=== PATIENT | female | born 1995 | race Caucasian/White ===

== ENCOUNTER → 2024-06-26 13:03 | Outpatient (CLI) | payer OTHER, SELFPAY ==
[2024-06-26 20:09] LABS: Add Manual Diff / Slide Review NO; Basophils Absolute Auto 100 /uL (0-100); Basophils Percent Auto 0.5 % (0-2); Eosinophils Absolute Auto 300 /uL (0-450); Eosinophils Percent Auto 3.1 % (2-4); Hematocrit 36.6 % (36-46); Hemoglobin 12.7 g/dL (12.0-16.0); Lymphocytes Absolute Auto 2000 /uL (1100-4500); Lymphocytes Percent Auto 18.3 % (25-40); Mean Corpuscular HGB Conc 34.7 % (30-36); Mean Corpuscular Hemoglobin 30.7 PG (26-34); Mean Corpuscular Volume 88.5 fL (80-100); Monocytes Absolute Auto 400 /uL (0-900); Monocytes Percent Auto 3.9 % (3-14); Neutrophils Absolute Auto 8300 /uL (1500-7000); Neutrophils Percent Auto 74.2 % (50-75); Platelet Count 240 X10^3/uL (150-400); Red Blood Cell Count 4.13 X10^6/uL (4.0-5.2); Red Cell Distribution Width 13.3 % (11.6-14.8); White Blood Cell Count 11.1 X10^3/uL (4.5-11.0)
[2024-06-26 23:34] LABS: Hepatitis B Surface Antigen NEGATIVE s/c (NEGATIVE); Rubella Antibody IgG 74.7 IU/mL (>15)
[2024-06-26 23:50] LABS: HIV 1 & 2 Ab/Ag 4th Gen Combo NEGATIVE (NEGATIVE); Hep C Virus Ab w/Reflex Quant NEGATIVE s/c (NEGATIVE)
[2024-06-28 08:09] LABS: Varicella IgG Antibody Reactive (Non Reactive)
[2024-07-02 08:08] LABS: RPR Screen Non Reactive (Non Reactive)
== END ==
PROVIDERS: PCP Family Medicine; Visit Provider Student in an Organized Health Care Education/Training Program
DX: Z34.00 Encounter for supervision of normal first pregnancy, unspecified trimester (principal)
CPT/HCPCS: 80055; 86787; 86803; 86850; 86900; 86901; 87389

== ENCOUNTER → 2024-07-09 10:07 | Outpatient (CLI) | payer OTHER, SELFPAY ==
[2024-07-09 15:13] LABS: Influenza A - CEPHEID Flu A NEGATIVE (NEGATIVE); Influenza B - CEPHEID Flu B NEGATIVE (NEGATIVE); Respiratory Syncytial Virus Negative (Negative)
[2024-07-09 15:18] LABS: COVID-19 CEPHEID 4-PLEX PCR Negative (Negative)
== END ==
PROVIDERS: PCP Family Medicine; Visit Provider Physician Assistant Medical
DX: Z34.90 Encounter for supervision of normal pregnancy, unspecified, unspecified trimester (principal); J06.9 Acute upper respiratory infection, unspecified
CPT/HCPCS: 0241U

== ENCOUNTER → 2024-07-22 14:35 | Outpatient (CLI) | payer OTHER, SELFPAY ==
--- NOTE | 2024-07-22 14:40 | DI.US.S_ITS ---
PROCEDURE: US OB >= 14 WEEKS FETUS INDICATIONS: 20 week anatomy scan OUTSIDE/PRIOR DATING DATA: Last menstrual period (LMP): 03/07/2024. LMP-based estimated date of delivery (SHANNAN): 12/12/2024. First dating scan (date and location): 05/16/2024. Estimated date of delivery (SHANNAN) from first dating scan: 12/06/2024. The calculations are made using the working SHANNAN of 12/12/2024. TECHNIQUE: Real-time scanning was performed of the fetus, with image documentation and biometric measurements. Endovaginal scanning: No COMPARISON: None. FINDINGS: General: A single living intrauterine gestation is present. Presentation: Breech. Placenta: Placental position is posterior , without previa. Amniotic fluid index: 12.1 cm, normal range is 5-24 cm. Single deepest vertical pocket is 4.0 cm. heart rate: 143 beats per minute. Maternal cervical canal: 4.1 cm long. Normal lower limit is 2.5 cm. biometrics: Biparietal diameter: 4.8 cm, 20 week 4 day Head circumference: 17.8 cm, 20 week 2 day Abdominal circumference: 15.2 cm, 20 week 3 day Femur length: 3.1 cm, 19 week 4 day Clinically estimated gestational age: 19 week 4 day Composite gestational age from present scan: 20 week 2 day Estimated weight and percentile: 331 g, 75 percentile Anatomic survey: Neuro: Ventricles are non-dilated at less than 10 mm. Cisterna magna is normal at 3-11 mm. Cerebellum is normal in size and morphology. Nuchal skin fold: Normal at less than 6 mm between 14-21 weeks gestational age. Face: Nose and lips, facial profile are normal. Spine: No evidence for spina bifida. Heart: 4-chambered heart is present, with normal ventricular outflow tracts. Diaphragm: Diaphragm is intact. Stomach: Left-sided stomach is present. Kidneys: No hydronephrosis. Normal is less than 5 mm in 2nd trimester, less than 7 mm in 3rd trimester. Cord: 3-vessel cord has orthotopic insertion. Bladder: Normal in size. Extremities: All 4 extremities identified. IMPRESSION: Single live intrauterine corresponds with a 20 week 2 day gestation by current ultrasound Normal anatomic survey Approved by: Manolo Cuevas M.D. on 07/23/2024 at 17:22
== END ==
PROVIDERS: PCP Family Medicine; Referring Provider Student in an Organized Health Care Education/Training Program; Visit Provider Student in an Organized Health Care Education/Training Program
DX: Z34.02 Encounter for supervision of normal first pregnancy, second trimester (principal); Z3A.20 20 weeks gestation of pregnancy
CPT/HCPCS: 76811

== ENCOUNTER → 2024-09-12 13:02 | Outpatient (CLI) | payer OTHER, SELFPAY ==
[2024-09-12 20:49] LABS: Hematocrit 36.3 % (36-46); Hemoglobin 12.4 g/dL (12.0-16.0)
[2024-09-12 21:09] LABS: GTT (PREG) 1 Hour PP 50gm Dose 125 mg/dL (76-139)
== END ==
PROVIDERS: PCP Family Medicine; Visit Provider Student in an Organized Health Care Education/Training Program
DX: Z13.0 Encounter for screening for diseases of the blood and blood-forming organs and certain disorders involving the immune mechanism (principal); Z13.1 Encounter for screening for diabetes mellitus
CPT/HCPCS: 82950; 85014; 85018

== ENCOUNTER → 2024-11-15 11:53 | Outpatient (CLI) | payer OTHER, SELFPAY ==
[2024-11-16 13:06] LABS: Strep Grp B PCR NEG for Grp B Strep
== END ==
LOC: LAB 11:54
PROVIDERS: PCP Family Medicine; Visit Provider Obstetrics & Gynecology
DX: Z34.93 Encounter for supervision of normal pregnancy, unspecified, third trimester (principal); Z3A.36 36 weeks gestation of pregnancy
CPT/HCPCS: 87653

== ENCOUNTER 2024-11-20 06:43 | Inpatient (IN) | payer OTHER, SELFPAY ==
--- NOTE | 2024-11-20 07:14 | P.HPOB_ITS ---
OB HPI Date/Time Date of admission: 11/20/24 Date Patient Seen: 11/20/24 Time Patient Seen: 07:14 History of Present Condition Chief complaint: PPROM/PTL at 36w6d SHANNAN Calculator Estimated Delivery Date Method Current WG Current Estimate 12/12/24 LMP (Certain) 36w 6d Other Estimates 12/06/24 Ultrasound #1 37w 5d : 1 care: good care Dating criteria OB: LMP confirmed by 1st trimester US Ultrasounds: normal mid trimester US Obstetrical complications: none Medical complications OB: none Preadmission Labs Last OB Lab Results: Blood Type A Positive 06/26/24 13:10 Antibody Screen Negative 06/26/24 13:10 Hct 43.9 % (36-46) 11/20/24 07:00 Hgb 14.9 g/dL (12.0-16.0) 11/20/24 07:00 Hep Bs Antigen Negative s/c (NEGATIVE) 06/26/24 13:10 Hepatitis C Antibody Negative s/c (NEGATIVE) 06/26/24 13:10 Rubella Antibody 74.7 IU/mL (>15) 06/26/24 13:10 VZV IgG Antibody Reactive (Non Reactive) 06/26/24 13:10 Glucose 1 Hr 50 gm 125 mg/dL (76-139) 09/12/24 14:08 Group B Strep (PCR) Neg for grp b strep 11/15/24 11:30 -: Chlamydia screen: negative, Gonorrhea screen: negative and Urine: negative External Labs -: Urine: negative Evaluation Evaluation Baseline heart rate: 140 Variability: Moderate (11-25) monitor accelerations: Present Monitor Decelerations: Absent Contraction Frequency (minutes): 3 Status: Category l Dilation (cm): 5 Effacement (%): 100 Dilation: >/=5 cm Effacement: >/=80% station: -2 Position of cervix: mid Consistency: soft Neri score: 10 Non-invasive Membranes Rupture Test: positive PFSH Medical History (Updated 08/02/24 @ 10:02 by Lula Lewis PA-C) Asthma Ovarian cyst Hx of prematurity Surgical History (Updated 06/17/24 @ 20:42 by Nikki Mcelroy) Anesthesia History of oral surgery [place] teeth removed (07/17/12) Family History (Updated 06/17/24 @ 20:43 by Nikki Mcelroy) Mother Age: 70 Osteoporosis Premature delivery Father Hypertension Grandfather Prostate cancer Grandfather Lung cancer Throat cancer Smoker Grandmother Hypertension Leukemia Grandmother Dementia Social History marital status: number of children: 0 household members: spouse lives independently: Yes caregiver/support person: No housing: apartment pets and animals: Yes (dogs) education level: college (associate's degree) 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[employer]) current occupational exposures/hazards: Yes (3-D printing, wood burning, aware to wear chemical respirator mask) special amado needs: No travel history: recent ([place]) seatbelt use: always helmet use: Yes water heater temp set < 120 deg: Yes working smoke detector in home: Yes fire extinguisher in home: Yes carbon monox detector in home: Yes firearms in home: No do you feel safe at home: Yes second hand exposure: Yes ( smokes outdoors, trying to quit) alcohol intake: former (~2-3/week when not ) substance use type: marijuana (not while /) during the past year weight has: decreased > 10 lbs well-balanced diet: daily or most days daily servings fruits/ve or more times/day caffeine: Yes (AM cup coffee) Type(s) of exercise: walking and yoga frequency: daily Meds Home Medications and Allergies Home Medications Medication Instructions Recorded Confirmed Type vitamin-ferrous sulfate tab PO 05/09/24 10/22/24 History 27 mg iron-folic acid 0.8 mg tablet ondansetron 4 mg disintegrating 4 mg PO Q6H PRN nausea and 05/20/24 10/22/24 Rx tablet vomiting #20 tabs albuterol sulfate 90 mcg/actuation See Rx Instructions inhalation 07/08/24 10/22/24 Rx aerosol inhaler Q4-6H PRN shortness of breath or wheezing #8.5 grams albuterol sulfate 1.25 mg/3 mL 1.25 mg (3 mL) inhalation Q4-6H 07/09/24 10/22/24 Rx solution for nebulization PRN asthma #75 mL Allergies Allergy/AdvReac Type Severity Reaction Status Date / Time lactose AdvReac Mild Abdominal Verified 10/22/24 11:07 Pain Review of Systems Review of Systems ROS: Yes All systems reviewed with the patient and are negative except as otherwise documented OB Exam HENMT Head: normal to inspection Resp Effort & Inspection: normal respiratory effort and able to speak in complete sentences Other: breathing through contractions Cardio Rate: regular rate GI Inspection: normal to inspection Other: gravid, leno cephalic 6.5-7# Assessment and Plan Assessment and Plan Assessment and Plan narrative: 29yo G1 at 36w6d d=10wk US presents in active late labor Active late labor GBS negative, cat 1 tracing, maternal VSS/afebrile pt counseled on available analgesia options for pain management in labor CBC, T&S on admission PNL reviewed and wnl, no genetic screening per pt preference, rubella immune Patient is consented for vaginal, vaginal operative and delivery as well as transfusion of blood products as medically indicated plan interval SVE 4h, sooner PRN anticipate Time-Based Coding :: [TOTAL MINUTES] spent with patient and on the chart (including review of chart, obtaining history, exam, reviewing outside data, placing orders, documenting exam and treatment plan, and counseling patient) on [DATE].
[2024-11-20 07:34] LABS: Add Manual Diff / Slide Review NO; Basophils Absolute Auto 100 /uL (0-100); Basophils Percent Auto 0.5 % (0-2); Eosinophils Absolute Auto 100 /uL (0-450); Eosinophils Percent Auto 0.3 % (2-4); Hematocrit 43.9 % (36-46); Hemoglobin 14.9 g/dL (12.0-16.0); Lymphocytes Absolute Auto 3600 /uL (1100-4500); Lymphocytes Percent Auto 16.4 % (25-40); Mean Corpuscular Hemoglobin 30.8 PG (26-34); Mean Corpuscular Volume 90.7 fL (80-100); Monocytes Absolute Auto 1000 /uL (0-900); Monocytes Percent Auto 4.5 % (3-14); Neutrophils Absolute Auto 17100 /uL (1500-7000); Neutrophils Percent Auto 78.3 % (50-75); Platelet Count 233 X10^3/uL (150-400); Red Blood Cell Count 4.84 X10^6/uL (4.0-5.2); Red Cell Distribution Width 13.1 % (11.6-14.8); White Blood Cell Count 21.9 X10^3/uL (4.5-11.0)
[2024-11-20] MEDS: ONDANSETRON 4 MG/2 ML INJ IV (07:37)
--- NOTE | 2024-11-20 08:54 | PM.OBPRVD ---
Events: Other (late PPROM at 36w6d) Labor & Delivery Delivery date: 11/20/24 Delivery Time: 08:35 Intrapartal Events: None Cervical ripening method: none Induction method: none Delivery monitor: external FHT Route of delivery: L&D Laceration Description: Periurethral - 1st Degree (hemostatic, not repaired) and Perineal - 1st Degree (hemostatic, not repaired) Estimated blood loss (mL): 150 Anesthesia Type: None Complications: none Narrative: Notified per RN of strong pt urge to push, C/C/+1. On first evaluation patient in hands and knees, pushing with contractions. SVE with noted thick anterior cervix, easily reduced. Over next successive contractions with excellent maternal effort slow descent of head to +3 station. Patient position change to rocker-bottom/dorsal lithotomy to allow for increased hip flexion. With next contraction head delivered slowly over intact perineum in NICKIE with immediate restitution to maternal left, bilateral hands in nuchal position. Anterior shoulder delivered with gentle downward traction, posterior shoulder and thorax delivered without difficulty. Patient grasped under axilla and in tandem with final push vigorous delivered and placed on maternal abdomen. Delayed cord clamping x3min after which blanching was noted. Cord clamped x2 and cut by FOB, 3VC noted. Spontaneous delivery of placenta shortly thereafter with gentle downward traction. Perineal exam revealed bilateral hemostatic periurethral abrasions, small hemostatic first degree perineal laceration that did not necessitate repair. Fundus firm below umbilicus, lochia scant Baby 1: Infant gender: Male Presentation: vertex (both hands in nuchal position) Position: Right Occiput Anterior Placenta delivery description: Spontaneous Cord Vessel Description: 3 Vessels score (1 min): 8 score (5 min): 9 weight: 7 lb 4.792 oz Plan for aftercare: Routine care
--- NOTE | 2024-11-21 09:49 | P.DS_ITS ---
Discharge Providers Provider Date of admission: 11/20/24 06:43 Discharge Date: 11/21/24 Primary care physician: Lula Gaming MD Consults: 11/20/24 06:59 Consult to Anesthesiology Urgent Comment: Consulting Provider: Anesthesiologist Reason for consultation: Epidural 11/21/24 08:53 Consult to Associate Professor Of Physics Routine Comment: Discharge provider: Elian Trejo MD Summary Hospital Course Date Patient Seen: 11/21/24 Time Patient Seen: 09:49 Diagnoses: Intrauterine , 36+ 6 weeks gestational age premature rupture of membranes followed by labor and delivery Hospital Course: Gisela was admitted early on the morning of 11/20/2024 after experiencing spontaneous rupture of membranes earlier that morning. As she was on her way to the hospital, she began having contractions and delivered shortly after arrival at 12:38 a.m. 30 5:00 a.m. on 11/20/2024, a vigorous male infant with Apgars of 8/9 and a weight of 7 lb 4.8 oz. following delivery both mother and baby have done extremely well with the mother experiencing prompt return of bowel and bladder function, is ambulating independently, tolerating a regular diet, and her pain is well controlled with oral pain medications. She will be discharged at this time to home in an afebrile normotensive condition after counseling regarding precautionary symptoms, limitations of activity, medications, and plans for follow-up which will be in 6 weeks. Medications at discharge will include resumption of all pre-admission medications and she will use [id number] Tylenol and/or ibuprofen for additional pain relief. Peripartum Data Infant Delivery Method: Natural Vaginal Laceration Description: Perineal - 1st Degree Episiotomy description: None Procedures: Spontaneous vaginal delivery complications: none [place] 1: Gender: Male Disposition of : home Status at Discharge Cognitive/behavioral status at discharge: oriented Time Spent with Patient Time attestation: Total time spent providing and/or coordinating discharge services: Time spent: Less than 30 minutes Specific discharge activities: See discharge instructions Objective Labs 11/20/24 07:00 Exam Const General: cooperative and comfortable Nutritional Appearance: average body habitus Orientation: alert and oriented x3 HENMT Head: normal to inspection, atraumatic and abrasion Ears: hearing grossly normal bilaterally Face and sinus: face symmetric Eyes General: appearance normal, both eyes and all related structures Conjunctivae: conjunctivae normal Sclera: sclerae normal EOM: EOM intact bilaterally Neck Neck: normal visual inspection Resp Effort & Inspection: normal respiratory effort and able to speak in complete sentences GI Inspection: normal to inspection External Female Exam: other (No significant bleeding noted) Extrem General: no calf tenderness Psych Appearance: grossly normal Mental Status: mental status grossly normal Speech and Movement: speech and movement normal Mood: congruent mood Affect: normal affect Attitude: cooperative Thought Process: normal Thought Content: normal Judgment: judgment good Discharge Plan Discharge Plan Patient Disposition: Home Provider Discharge Comment: Please review the written instructions you received when you were discharged from the hospital. Your follow-up appointment with Dr. Chavez will be scheduled for 6 weeks after delivery and look forward to seeing then. If however in the meanwhile you have any issues, concerns, or questions, please contact our office either by phone at [phone], or via the patient portal. Discharge orders & Medications Prescriptions: Continued ondansetron 4 mg tablet,disintegrating 4 mg PO Q6H PRN (Reason: nausea and vomiting) Qty: 20 1RF vit-ferrous sulfat-FA 27 mg iron- 0.8 mg tablet PO albuterol sulfate 1.25 mg/3 mL solution for nebulization 1.25 mg inhalation Q4-6H PRN (Reason: asthma) Qty: 75 0RF albuterol sulfate 90 mcg/actuation HFA aerosol inhaler See Rx Instructions inhalation Q4-6H PRN (Reason: shortness of breath or wheezing) Qty: 8.5 2RF Rx Instructions: 1 to 2 puffs inhaled every 4-6 hours PRN; Follow up/Referrals: Lula Gaming MD [Primary Care Provider] - Discharge Health Status Multidrug resistant organism: No MDRO Diet/Activity/Treatments Diet: Diet as Tolerated Activity: As tolerated Other treatments: [id number] Tylenol and/or ibuprofen may be used for additional pain relief. Jxfa-gph-[id number] stool softeners and/or MiraLax may be used as needed for constipation. Skin/Wound/Dressing Care Report to your healthcare provider any signs of infection, such as:: chills, fever, increased pain, unusual drainage and unusual redness Dressing: N/A Visit Report/Discharge Packet Instructions: DI for Labor and Delivery, Vaginal , DI for Depression, DI for and Nipple Soreness Stand Alone Forms: Patient Portal/API, Stroke Signs & Symptoms Discharge Data Primary Care Provider: Lula Gaming
== END 2024-11-21 13:11 | disposition home or self-care (01) | DRG 807 ==
PROVIDERS: Obstetrics & Gynecology; Admitting Provider Student in an Organized Health Care Education/Training Program; PCP Family Medicine; Referring Provider Student in an Organized Health Care Education/Training Program; Visit Provider Student in an Organized Health Care Education/Training Program
DX: O60.14X0 Preterm labor third trimester with preterm delivery third trimester, not applicable or unspecified (principal); Z37.0 Single live birth; Z3A.36 36 weeks gestation of pregnancy
CPT/HCPCS: 36415; 59050; 85025; 86850; 86900; 86901; G0379; J2405